=== PATIENT | male | born 1990 | race Caucasian/White ===

== ENCOUNTER 2016-11-20 11:45 | Emergency (ER) | payer SELFPAY ==
[~2016-11-20] VITALS: Ht 162.6 cm; Wt 60.0 kg
[2016-11-20 11:50] VITALS: Ht 162.6 cm; Wt 60.0 kg
[2016-11-20] MEDS ORDERED: HYDROCODONE/APAP (10/325) TAB PO ONE (13:00)
--- NOTE | 2016-11-20 13:40 | RADRPT ---
PROCEDURE: XR Right Wrist CLINICAL INDICATION: Deformity status post fall TECHNIQUE: PA, lateral, and oblique views were submitted. COMPARISON: None FINDINGS: Osseous structures: There is a fracture through the distal right radial metaphysis with the distal f ragment displaced dorsally by a cortical bone with and moderately angulated dorsally. The ulnar sty loid is avulsed and displaced laterally. No other fractures identified. Joint spaces: are well maintained with no significant erosions or spurring identified. Soft tissues: There is soft tissue swelling. IMPRESSION: 1. Fracture involving the distal right radius with the distal fragment displaced dorsally by a gloria ical bone with and moderately angulated dorsally. 2. Avulsion of the ulnar styloid. Physician Douglas Date Time Electronically viewed and signed by Physician Douglas on 11/20/2016 13:40 /
--- NOTE | 2016-11-20 13:41 | RADRPT ---
PROCEDURE: CR Right Elbow CLINICAL INDICATION: Fall TECHNIQUE: AP, lateral, and an oblique radiographs were submitted. COMPARISON: None FINDINGS: Osseous Structures: The osseous elements appear well mineralized and intact. There is a small spur o ff the posterior olecranon. Joint Spaces: The joint spaces are well maintained. No joint effusion is evident. Soft Tissues: Appear unremarkable. IMPRESSION: 1. Small spur off the posterior olecranon. 2. No fracture, dislocation, or joint effusion is evident. Physician Douglas Date Time Electronically viewed and signed by Radha Zarate Physician on 11/20/2016 13:41 /
[2016-11-20] MEDS ORDERED: morphine 10 MG INJ IM ONE (14:30)
[2016-11-20] MEDS ORDERED: HYDR-902 PO (15:14)
[2016-11-20] MEDS ORDERED: IBUP800T25 PO (15:14)
--- NOTE | 2016-11-20 17:02 | ERD ---
ER Documentation Chief Complaint Date/Time DATE: 11/20/16 TIME: 16:50 Chief Complaint Complains of right arm pain HPI 18-year-old male complaining of right wrist pain. Patient stated that he he was standing on a chair to change a light bulb when he fell. He did not remember whether he fell with outstretched arm. He is having severe pain in his right wrist. Denies any medical history. Smokes daily,, alcohol on occasion. 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 Denies hitting his head in the fall. Denies any other injuries. ROS All systems reviewed and are negative except as per history of present illness. Medications Home Meds Active Scripts Ibuprofen* (Motrin*) 800 Mg Tab, 800 MG PO Q8, #30 TAB Prov:MARCELA MORA. LICENSED MASSAGE THERAPIST 11/20/16 Hydrocodone/Acetaminophen ([place] 10-325 Tablet) 1 Each Tablet, 1 TAB PO Q6H Y for SEVERE PAIN LEVEL 7-10, #7 TAB Prov:MARCELA MORA. LICENSED MASSAGE THERAPIST 11/20/16 Allergies Allergies: Coded Allergies: No Known Allergy (Unverified , 11/20/16) PMhx/Soc Medical and Surgical Hx: pt denies Medical Hx, pt denies Surgical Hx Hx Alcohol Use: Yes (OCCASSIONALLY) Hx Substance Use: No (METH QUIT 3 MONTHS AGO) Hx Tobacco Use: Yes (3 CIG/DAY) Smoking Status: Light tobacco smoker Physical Exam Vitals Vital Signs Date Time Temp Pulse Resp B/P Pulse Ox O2 Delivery O2 Flow Rate FiO2 11/20/16 11:50 98.3 65 20 129/92 98 Physical Exam General: Patient is well-developed. Awake, alert, and conversant, in no apparent distress Skin: Warm and dry Head: Normocephalic, atraumatic without palpable deformities Eyes: Pupils equal, round, and reactive to light. Extraocular movements intact. No periorbital ecchymosis or step-off Neck: No midline point tenderness, step-off, or deformity to firm palpation of posterior cervical spine. Trachea midline. Carotids equal. No masses. No JVD. Full range of motion of the neck without limitation or pain Chest: No surface trauma. Nontender without crepitus or deformity. No palpable subcutaneous air. Lungs have good tidal volume, lungs clear to auscultate bilaterally Heart: Regular rate and rhythm. No murmur, rub, or gallop Extremities: Obvious deformity noted in the right wrist, with point tenderness. Limited range of motion of the right wrist. Full active range of motion of the right elbow. Tenderness of the right elbow. Sensation to light touch intact. All peripheral pulses are intact and equal Neuro: Alert and oriented 4, GCS 15, cranial nerves II through XII intact. Motor and sensory exam is nonfocal. Reflexes are symmetric Results 24 hrs Current Medications Medications (Trade) Dose Ordered Sig/Elizabet Route PRN Reason Start Time Stop Time Status Last Admin Dose Admin Acetaminophen/ Hydrocodone Bitart ([place] ()) 1 tab ONCE ONCE PO 11/20/16 13:00 11/20/16 13:01 DC 11/20/16 12:58 Morphine Sulfate (morphine) 4 mg ONCE ONCE IM 11/20/16 14:30 11/20/16 14:31 DC 11/20/16 14:30 PROCEDURE: XR Right Wrist CLINICAL INDICATION: Deformity status post fall TECHNIQUE: PA, lateral, and oblique views were submitted. COMPARISON: None FINDINGS: Osseous structures: There is a fracture through the distal right radial metaphysis with the distal fragment displaced dorsally by a cortical bone with and moderately angulated dorsally. The ulnar styloid is avulsed and displaced laterally. No other fractures identified. Joint spaces: are well maintained with no significant erosions or spurring identified. Soft tissues: There is soft tissue swelling. IMPRESSION: 1. Fracture involving the distal right radius with the distal fragment displaced dorsally by a cortical bone with and moderately angulated dorsally. 2. Avulsion of the ulnar styloid. Physician Douglas Date Time Electronically viewed and signed by Physician Douglas on 11/20/2016 13:40 RH/ CC: MARCELA MORA NP PROCEDURE: CR Right Elbow CLINICAL INDICATION: Fall TECHNIQUE: AP, lateral, and an oblique radiographs were submitted. COMPARISON: None FINDINGS: Osseous Structures: The osseous elements appear well mineralized and intact. There is a small spur off the posterior olecranon. Joint Spaces: The joint spaces are well maintained. No joint effusion is evident. Soft Tissues: Appear unremarkable. IMPRESSION: 1. Small spur off the posterior olecranon. 2. No fracture, dislocation, or joint effusion is evident. Physician Douglas Date Time Electronically viewed and signed by Physician Douglas on 11/20/2016 13:41 RH/ CC: MARCELA MORA LICENSED MASSAGE THERAPIST Procedures/MDM 26-year-old male present ED with right wrist pain and deformity after fall. X- ray of the right wrist show the distal radius fracture with the distal fragment displaced dorsally by a cortical bone with moderately angulated dorsal quality. Avulsion of the ulnar styloid. X-ray right elbow show no fractures or dislocations. The area of injury was immobilized with a volar splint and a sling. Patient was noted to be comfortable and neurovascularly intact both before and after the immobilization. [place] and morphine given to the patient in the ED for pain. Patient advised to follow-up with the orthopedist or hand surgeon. Referral for [facility] and [facility] given to the patient. Patient appears well, stable for discharge and outpatient management. Medical decision making shared with patient and family. Education provided to patient and family. Patient and family expressed understanding of the plan. Medications on discharge: [place]. Follow-up: Primary care provider in 2-3 days or return to ED if worse. The case was reviewed and discussed with Dr. Sanchez, who agrees with the plan of care including labs, treatment, and advanced imaging as appropriate. Departure Diagnosis: Primary Impression: Wrist fracture, right Condition: Stable Patient Instructions: Fracture, Wrist [General] Referrals: [facility] [place] Usted se fitzpatrick hecho un examen mdico de control que le indica que no est en robert condicin que requiera tratamiento urgente en el Departamento de Emergencia. Un estudio ms profundo y el tratamiento de rios condicin pueden esperar sin ningn riesgo hasta que usted sea atendida/o en el consultorio de rios mdico o robert cl janet. Es responsabilidad suya arreglar robert sundeep para el seguimiento del yu. MANEJO DE CONDICIONES NO URGENTES EN EL FUTURO 1) Si usted tiene un mdico de atencin primaria: Usted debera llamar a rios mdico de atencin primaria antes de venir al departamento de emergencia. Despus de las horas de consultorio, rios doctor o rios asociado/a est disponible por telfono. El mdico o enfermero de ayaka en el servicio telefnico puede asesorarle por shaye medio para atender el problema, o yu contrario se puede programar robert sundeep. 2) Si usted no tiene un mdico de atencin primaria: Llame al mdico o condado institucions de referencia que aparece abajo rosette las horas de consultorio para hacer robert sundeep para que le vean. SI USTED NO PUEDE PAGAR PARA OLGA UN MEDICO puede ir a: [facility] [address] [place] [address] [facility] [address] [place] [address] [facility] [address] [place] [address] [facility] [address] [place], [place] [id number] [facility] Additional Instructions: Specialist:Usted tiene robert condicin mdica que requiere que connor a un especialista dentro de los prximos 1-2 scanlon.POR FAVOR,CON RIOS SEGUIMIENTO DE PRIMARIA PHSICIAN refferal. SI USTED NO TIENE UN MDICO GENERAL Y / O USTED NO PUEDE PAGAR olga a un mdico,los siguientes allison RECURSOS sido suministrado a usted. ES RIOS RESPONSABILIDAD PARA SER VISTOS POR EL ESPECIALISTA: MARCELA MOAR NP Nov 20, 2016 17:02
== END 2016-11-20 15:44 | disposition home or self-care (01) ==
LOC: FTE 11:45
DX: S52.611A Displaced fracture of right ulna styloid process, initial encounter for closed fracture (principal); F17.210 Nicotine dependence, cigarettes, uncomplicated; W07.XXXA Fall from chair, initial encounter; Y92.9 Unspecified place or not applicable
CPT/HCPCS: 29125; 73080; 73110; J2270; 96372